=== PATIENT | male | born 1975 | race Caucasian/White ===

== ENCOUNTER 2023-08-15 22:45 | Emergency (ER) | payer OTHER ==
[~2023-08-15] VITALS: Ht 167.6 cm; Wt 68.0 kg
[2023-08-15 22:49] VITALS: BP 134/68; PULSE 92; RESP 20; TEMP 97.4; O2SAT 95
[2023-08-15] MEDS: levETIRAcetam 500 MG TAB PO ONE (23:09)
[2023-08-16] MEDS ORDERED: LEVE500T9 PO (01:51)
[2023-08-16 02:01] VITALS: TEMP 98
[2023-08-16 04:39] VITALS: BP 116/98; PULSE 89; RESP 16; O2SAT 98
== END 2023-08-16 05:05 | disposition home or self-care (01) ==
LOC: MED 22:45
DX: S00.01XA Abrasion of scalp, initial encounter (principal); R56.9 Unspecified convulsions; Z79.899 Other long term (current) drug therapy; Y08.89XA Assault by other specified means, initial encounter; Y93.89 Activity, other specified; Y92.89 Other specified places as the place of occurrence of the external cause; Y99.8 Other external cause status
CPT/HCPCS: 70450; 72040; 72125; 99285